=== PATIENT | male | born 1970 | race Caucasian/White ===

== ENCOUNTER → 2016-11-18 | Outpatient (CLI) | payer OTHER ==
--- NOTE | 2016-11-18 10:43 | REP ---
Clinical: Trauma. Technique: AP, lateral, bilateral oblique views of the fourth digit. Findings: Four views of the right fourth digit demonstrates no acute fracture or dislocation. Skeletal structures, joint spaces, and surrounding soft tissues are relatively normal. No subcutaneous emphysema or radiodense foreign body. Impression: No acute fracture dislocation. Signed by Karlo Gaines MD 11/18/2016 10:34 A
== END ==
LOC: M LRY 09:55
PROVIDERS: ATTEND Physician Assistant
DX: M79.644 Pain in right finger(s) (principal)

== ENCOUNTER → 2018-08-06 | Outpatient (REF) | payer BC, MEDICAID ==
[2018-08-06 21:46] LABS: BASO # 0.1 10^3/uL (0.0-0.2); BASO % 0.7 % (0.0-1.0); EOS % 0.2 % (0.0-3.0); HEMATOCRIT 45.7 % (42.0-52.0); HEMOGLOBIN 15.3 g/dl (13.5-17.5); LYMPH # 2.6 10^3/uL (1.5-4.5); LYMPH % 19.2 % (24.0-44.0); MEAN CORPUSCULAR HEMOGLOBIN 30.5 pg (27.0-33.0); MEAN CORPUSCULAR HGB CONC 33.5 g/dl (32.0-36.5); MEAN CORPUSCULAR VOLUME 91.2 fl (80.0-96.0); MONO # 0.8 10^3/uL (0.0-0.8); MONO % 5.9 % (0.0-5.0); NEUTROPHILS % 73.6 % (36.0-66.0); PLATELET COUNT, AUTOMATED 413 10^3/uL (150-450); RED BLOOD COUNT 5.01 10^6/uL (4.30-6.10); WHITE BLOOD COUNT 13.5 10^3/uL (4.0-10.0)
== END ==
LOC: M LAB REF 09:22
PROVIDERS: ATTEND Physician Assistant
DX: M19.90 Unspecified osteoarthritis, unspecified site (principal)

== ENCOUNTER 2025-01-07 12:32 | Emergency (ER) | payer MEDICAID ==
[2025-01-07] MEDS ORDERED: AMLO1TAB25 PO (12:50)
[2025-01-07] MEDS ORDERED: LOSA100T46 PO (12:50)
[2025-01-07] MEDS ORDERED: PARO20TA3 PO (12:50)
[2025-01-07] MEDS ORDERED: INDA1.253 PO (12:50)
[2025-01-07] MEDS ORDERED: METO1TAB33 (12:50)
[2025-01-07] MEDS ORDERED: ASPI81CH33 PO (12:50)
[2025-01-07] MEDS ORDERED: ATOR80TA59 PO (12:50)
[2025-01-07] MEDS ORDERED: NADO20TA38 PO (13:00)
[2025-01-07 13:11] LABS: BASO # 0.1 10^3/uL (0.0-0.2); BASO % 0.9 % (0.0-1.0); EOS # 0.1 10^3/uL (0.0-0.5); EOS % 1.5 % (0.0-3.0); LYMPH # 2.3 10^3/uL (1.5-5.0); LYMPH % 28.6 % (24.0-44.0); MONO # 0.9 10^3/uL (0.0-0.8); MONO % 10.9 % (2.0-8.0); NEUTROPHILS # 4.6 10^3/uL (1.5-8.5); NEUTROPHILS % 57.8 % (36.0-66.0); PLATELET COUNT, AUTOMATED 387 10^3/uL (150-450)
[2025-01-07 13:37] LABS: CK-MB VALUE MASS 2.0 NG/ML (<3.6)
[2025-01-07 13:40] LABS: ALT/SGPT 50 U/L (7.0-40); AST/SGOT 34 U/L (<34); CALCIUM LEVEL 9.8 MG/DL (8.5-10.1); CARBON DIOXIDE LEVEL 29 MMOL/L (20-31); CHLORIDE LEVEL 100 MMOL/L (98-107); CREATININE FOR GFR 0.75 MG/DL (0.70-1.30); GLOMERULAR FILTRATION RATE > 90.0 (>56); POTASSIUM SERUM 4.1 MMOL/L (3.5-5.1); SODIUM LEVEL 138 MMOL/L (136-145)
[2025-01-07 13:45] LABS: CPK CREATINE PHOSPHOKINASE 220 U/L (46-171); MB/CK RELATIVE INDEX 0.90 (< OR =4)
[2025-01-07] MEDS ORDERED: HOME MED LIST COMPLETE! XX SCH (14:20)
[2025-01-07] MEDS ORDERED: ISOVUE-370 76% 100 ML VIAL As Ordered ONE (14:28)
[2025-01-07 15:05] LABS: MAGNESIUM LEVEL 2.0 MG/DL (1.8-2.4)
[2025-01-07 17:30] VITALS: BP 111/67; O2SAT 98
[2025-01-07 17:45] VITALS: TEMP 97.3
== END 2025-01-07 17:54 | disposition home or self-care (01) ==
LOC: EDBD 12:32 → M ED 12:32
DX: R55 Syncope and collapse (principal); R00.1 Bradycardia, unspecified; I10 Essential (primary) hypertension; E78.5 Hyperlipidemia, unspecified; Z79.82 Long term (current) use of aspirin; Z79.899 Other long term (current) drug therapy
CPT/HCPCS: 71275; 80053; 82550; 82553; 83735; 84484; 85025; 93005; 99285; Q9967